=== PATIENT | male | born 1980 | race African-American/Black ===

== ENCOUNTER 2023-04-19 22:38 | Emergency (ER) | payer SELFPAY ==
[~2023-04-19] VITALS: Ht 175.3 cm; Wt 62.6 kg
[2023-04-19 22:56] VITALS: O2SAT 99
[2023-04-19] MEDS ORDERED: KETOROLAC 30MG/ML VIAL IM ONE (23:45)
[2023-04-20] MEDS ORDERED: NAPR-1176 MT (00:10)
[2023-04-20] MEDS ORDERED: LIDO700A15 TP (00:10)
[2023-04-20 00:19] VITALS: BP 120/79
[2023-04-20 00:20] VITALS: PULSE 78; RESP 14; TEMP 98.9
== END 2023-04-20 00:22 | disposition home or self-care (01) ==
LOC: ER 22:38
DX: M54.6 Pain in thoracic spine (principal); M54.2 Cervicalgia
CPT/HCPCS: 99283; J1885